=== PATIENT | female | born 1965 | race African-American/Black ===

== ENCOUNTER 2018-05-10 04:34 | Emergency (ER) | payer SELFPAY ==
[~2018-05-10] VITALS: Ht 162.6 cm; Wt 81.8 kg
[~2018-05-10 04:34] MED LIST: ASPI-1182 PO
[2018-05-10 06:43] VITALS: BP 122/68
[2018-05-10] MEDS ORDERED: IBUPROFEN 600 MG TABLET PO ONE (07:00)
[2018-05-10] MEDS ORDERED: SODIUM CHLORIDE 0.9% 250 ML IRRIG SOLUTION BOTTLE IRRIG ONE (07:00)
[2018-05-10] MEDS ORDERED: PERTUSS(ACELL),DIPH,TET VAC/PF 0.5 ML VIAL IM ONE (07:00)
== END 2018-05-10 07:21 | disposition home or self-care (01) ==
LOC: EMS 04:35
DX: S61.412A Laceration without foreign body of left hand, initial encounter (principal); I10 Essential (primary) hypertension; W18.02XA Striking against glass with subsequent fall, initial encounter; Y93.89 Activity, other specified; Y92.89 Other specified places as the place of occurrence of the external cause; Y99.8 Other external cause status
CPT/HCPCS: 90471; 90715; 99283

== ENCOUNTER 2019-04-13 23:15 | Inpatient (IN) | payer MEDICAID ==
[~2019-04-13] VITALS: Ht 162.6 cm; Wt 82.6 kg
[2019-04-14 02:54] LABS: BASOPHILS % (AUTO) 0.9 % (0.0-2.0); EOSINOPHILS % (AUTO) 1.1 % (1.0-6.0); HEMATOCRIT 42.4 % (36-46); HEMOGLOBIN 14.2 g/dL (12.0-16.0); LYMPHOCYTES # (AUTO) 2.6 K/uL (1.0-4.8); LYMPHOCYTES % (AUTO) 41.2 % (22.0-44.0); MEAN CORPUSCULAR HEMOGLOBIN 32.5 pg (26.0-34.0); MEAN CORPUSCULAR HGB CONC 33.4 G/dL (31.0-37.0); MEAN CORPUSCULAR VOLUME 97 fL (80-100); MONOCYTES # (AUTO) 0.5 K/uL (0.1-1.0); MONOCYTES % (AUTO) 7.1 % (2.0-9.0); NEUTROPHILS # (AUTO) 3.2 K/uL (1.8-7.7); NEUTROPHILS % (AUTO) 49.7 % (40.0-70.0); PLATELET COUNT (AUTO) 266 K/uL (150-450); RED BLOOD CELL COUNT(AUTO) 4.36 MIL/uL (4.00-5.20); RED CELL DISTRIBUTION WIDTH 13.3 % (11.5-14.5)
[2019-04-14 03:04] LABS: ANION GAP 15 mmol/L (8-16); CALCIUM, TOTAL 8.7 mg/dL (8.8-10.5); CARBON DIOXIDE 24 mmol/L (22-29); CHLORIDE 105 mmol/L (98-107); CREATININE 0.91 mg/dL (0.60-1.30); GLOMERULAR FILTR. RATE CALC > 60 mL/min (>60); GLUCOSE,RANDOM 99 mg/dL (70-110); POTASSIUM 3.1 mmol/L (3.5-5.1); SODIUM SERUM 144 mmol/L (136-145); UREA NITROGEN, BLOOD 9 mg/dL (7-18)
[2019-04-14 03:12] LABS: ALANINE AMINOTRANSFERASE 19 U/L (12-78); ALKALINE PHOSPHATASE 63 U/L (46-116); ASPARTATE AMINOTRANSFERASE 26 U/L (15-37); BILIRUBIN,TOTAL 0.4 mg/dL (0.1-1.0); TOTAL PROTEIN, SERUM 7.2 g/dL (6.4-8.2)
[2019-04-14] MEDS ORDERED: OLANZapine 5 MG RAPDIS TABLET PO PRN (03:30)
[2019-04-14] MEDS ORDERED: LORazepam 2 MG TABLET PO PRN ×2 (03:30→15:30)
[2019-04-14] MEDS ORDERED: ZOLPIDEM TARTRATE 10 MG TABLET PO PRN (03:30)
[2019-04-14] MEDS ORDERED: POTASSIUM CHLORIDE 20 MEQ ER TABLET PO ONE ×2 (04:00→12:30)
[2019-04-14] MEDS ORDERED: PNEUMOCOCCAL VACCINE POLYVALENT 0.5 ML VIAL [PPSV23] IM ONE (06:30)
[2019-04-14 08:15] VITALS: BP 124/76
[2019-04-14 15:30] VITALS: BP 106/55
[2019-04-14] MEDS ORDERED: GuaiFENesin/D-METHORPHAN [SUGAR-FREE] 200-20MG/10 ML SYRUP UDCUP PO PRN (15:30)
[2019-04-14] MEDS ORDERED: PROMETHAZINE HCL 25 MG TABLET PO PRN (15:30)
[2019-04-14] MEDS ORDERED: MAG HYDROX/AL HYDROX/SIMETH ES 30 ML SUSPENSION UDCUP PO PRN (15:30)
[2019-04-14] MEDS ORDERED: LOPERAMIDE HCL 2 MG CAPSULE PO PRN ×2 (15:30)
[2019-04-14] MEDS ORDERED: MAGNESIUM HYDROXIDE SUSPENSION 30 ML UDCUP PO PRN (15:30)
[2019-04-14] MEDS ORDERED: ACETAMINOPHEN 325 MG TABLET PO PRN (15:30)
[2019-04-14] MEDS ORDERED: CYANOCOBALAMIN 1,000 MCG/ML VIAL IM ONE (15:30)
[2019-04-14] MEDS ORDERED: TUBERCULIN, PURIFIED PROTEIN DERIVATIVE 5 TU/0.1 ML SYRINGE ID ONE (15:30)
[2019-04-14] MEDS ORDERED: HydrOXYzine PAMOATE 50 MG CAPSULE PO PRN (15:30)
[2019-04-14 16:00] VITALS: BP 106/55
[2019-04-14 17:30] VITALS: BP 108/57
[2019-04-14 18:30] VITALS: BP 105/58
[2019-04-14] MEDS: THIAMINE HCL 100 MG TABLET PO SCH (20:17)
[2019-04-14] MEDS ORDERED: OLANZapine 5 MG RAPDIS TABLET PO SCH (21:00)
[2019-04-14 22:30] VITALS: BP 106/68
[2019-04-15] VITALS (7 sets, daily range): BP systolic 102–115; BP diastolic 61–75
[2019-04-15] MEDS ORDERED: LORazepam 2 MG TABLET PO PRN (07:00)
[2019-04-15] MEDS: THIAMINE HCL 100 MG TABLET PO SCH ×2 (08:26→16:19)
[2019-04-15] MEDS: NALTREXONE HCL 50 MG TABLET PO SCH (08:27)
[2019-04-15] MEDS: FOLIC ACID 1 MG TABLET PO SCH (08:27)
[2019-04-15] MEDS: LORazepam 2 MG TABLET PO SCH ×5 (08:27→21:00)
[2019-04-15] MEDS: MULTIVITAMINS WITH MINERALS, THERAPEUTIC TABLET PO SCH ×2 (09:00→10:13)
[2019-04-15 09:21] LABS: ANION GAP 12 mmol/L (8-16); CALCIUM, TOTAL 8.7 mg/dL (8.8-10.5); CARBON DIOXIDE 27 mmol/L (22-29); CHLORIDE 104 mmol/L (98-107); CHOL/HDL RATIO 4.7 (3.9-5.7); CHOLESTEROL 236 mg/dL (131-200); CREATININE 0.82 mg/dL (0.60-1.30); FREE T4 (FREE THYROXINE) 0.91 ng/dL (0.76-1.46); GLOMERULAR FILTR. RATE CALC > 60 mL/min (>60); GLUCOSE,RANDOM 92 mg/dL (70-110); HDL CHOLESTEROL 50 mg/dL (40-60); LDL CHOL (CALC.) 145 mg/dL (0-130); POTASSIUM 3.6 mmol/L (3.5-5.1); SODIUM SERUM 143 mmol/L (136-145); THYROID STIMULATING HORMONE 1.21 uIU/mL (0.36-3.74); TRIGLYCERIDES 205 mg/dL (15-150); UREA NITROGEN, BLOOD 8 mg/dL (7-18)
[2019-04-15] MEDS ORDERED: NALT50TA PO (14:41)
[2019-04-15] MEDS ORDERED: ARIP15TA2 PO (14:41)
[2019-04-16 06:26] VITALS: BP 111/74
[2019-04-16 08:08] VITALS: BP 103/63
[2019-04-16] MEDS: FOLIC ACID 1 MG TABLET PO SCH (08:30)
[2019-04-16] MEDS: NALTREXONE HCL 50 MG TABLET PO SCH (08:30)
[2019-04-16] MEDS: THIAMINE HCL 100 MG TABLET PO SCH (08:30)
[2019-04-16] MEDS: MULTIVITAMINS WITH MINERALS, THERAPEUTIC TABLET PO SCH (08:30)
[2019-04-16] MEDS: LORazepam 2 MG TABLET PO SCH ×2 (08:37→12:35)
[2019-04-16] MEDS ORDERED: ARIPiprazole 15 MG TABLET PO SCH (09:00)
[2019-04-17] MEDS ORDERED: LORazepam 1 MG TABLET PO PRN (07:00)
[2019-04-17] MEDS ORDERED: LORazepam 1 MG TABLET PO SCH (09:00)
[2019-04-17] MEDS ORDERED: LOPERAMIDE HCL 2 MG CAPSULE PO PRN (15:30)
[2019-04-18] MEDS ORDERED: LORazepam 1 MG TABLET PO PRN (07:00)
== END 2019-04-16 14:24 | disposition home or self-care (01) | DRG 751 ==
LOC: EMS 23:17 → B3A 04-14 04:30
PROVIDERS: ADMIT Psychiatry & Neurology Psychiatry; ATTEND Psychiatry & Neurology Psychiatry
DX: F29 Unspecified psychosis not due to a substance or known physiological condition (principal); Z91.19 Patient's noncompliance with other medical treatment and regimen; E66.9 Obesity, unspecified; E87.6 Hypokalemia; F10.10 Alcohol abuse, uncomplicated; M25.522 Pain in left elbow; F17.210 Nicotine dependence, cigarettes, uncomplicated; F60.0 Paranoid personality disorder; I10 Essential (primary) hypertension; Z28.21 Immunization not carried out because of patient refusal; Z68.31 Body mass index [BMI] 31.0-31.9, adult; Z82.3 Family history of stroke
CPT/HCPCS: 80074; 84439; 84443; G0480; J3420